=== PATIENT | female | born 1965 | race Caucasian/White ===

== ENCOUNTER 2020-07-04 15:56 | Emergency (ER) | payer SELFPAY ==
[~2020-07-04] VITALS: Ht 149.9 cm; Wt 81.6 kg
[2020-07-04 15:59] VITALS: Ht 149.9 cm; Wt 81.6 kg
[2020-07-04 17:22] LABS: BASOPHIL % 0.2 % (0-2); PLATELET COUNT 181 x10^3mcL (130-400); RED CELL DISTRIBUTION WIDTH 15.8 % (11.5-14.5)
[2020-07-04 17:38] LABS: CALCIUM 8.6 mg/dL (8.5-10.1); CARBON DIOXIDE 25.3 mmol/L (21-32); CHLORIDE SERUM 103 mmol/L (98-107); CREATININE SERUM 0.6 mg/dL (0.6-1.0); GFR1 > 60 mL/min; GLUCOSE SERUM 109 mg/dL (74-106); POTASSIUM SERUM 3.6 mmol/L (3.5-5.1); SODIUM SERUM 139 mmol/L (136-145)
[2020-07-04 17:43] LABS: ALBUMIN 3.4 g/dL (3.4-5.0); ALKALINE PHOSPHATASE 123 U/L (46-116); ALT/SGPT 150 U/L (14-59); AST/SGOT 123 U/L (15-37); BILIRUBIN TOTAL 0.82 mg/dL (0.20-1.00); TOTAL PROTEIN, SERUM 7.6 g/dL (6.4-8.2)
[2020-07-04] MEDS ORDERED: TIROSINT50 MC1 PO (18:50)
[2020-07-04] MEDS ORDERED: PAROXETINE40 M1 PO (18:51)
[2020-07-04] MEDS ORDERED: MONTELUKAST SOD10 M1 PO (18:52)
[2020-07-04] MEDS ORDERED: INDERAL LA60 MG (18:52)
[2020-07-04 20:16] VITALS: BP 112/43
== END 2020-07-04 20:16 | disposition home or self-care (01) ==
LOC: ED 15:56
PROVIDERS: Specialist
DX: U07.1 COVID-19 (principal); I10 Essential (primary) hypertension
CPT/HCPCS: 36600; 83880; 87804; J0456; J0696; J1885; J2405; J3010; J7030; J7050; J7060